=== PATIENT | male | born 1965 | race Caucasian/White ===

== ENCOUNTER 2018-02-25 19:15 | Emergency (ER) | payer SELFPAY ==
[~2018-02-25] VITALS: Ht 167.6 cm; Wt 96.2 kg
[2018-02-25 19:27] VITALS: BP 123/58; PULSE 84; RESP 18; TEMP 98; O2SAT 98
[2018-02-25] MEDS ORDERED: PRAV10TA PO (19:34)
[2018-02-25] MEDS ORDERED: LISI10TA3 PO (19:34)
[2018-02-25] MEDS ORDERED: ARTHTAB5 PO (20:37)
--- NOTE | 2018-02-25 20:42 | PD ---
HPI Chief Complaint: Pain: Acute or Chronic Time Seen by Provider: 19:33 Travel History International Travel<30 days: No Contact w/Intl Traveler<30days: No Traveled to known affect area: No History of Present Illness HPI 52-year-old male presents today with coming to left knee pain. Patient states he injured it about 6 months ago. Patient states he got better. States that yesterday he was lifting a heavy motor block and he heard a pop in his knee. He states it hurts when he bends and extends his knee. He denies any numbness or tingling to his leg. He denies any traumatic injury that he is aware of. Patient is able to stand however when he walks and bends his knee it hurts. PFSH Past Medical History Cardiovascular Problems: Yes (HTN) High Cholesterol: Yes Hypertension: Yes Past Surgical History Abdominal Surgery: Yes (HERNIA) Other Surgery: Yes (SKIN CANCER REMOVED) Social History Alcohol Use: No Tobacco Use: Yes Substance Use: No Allergies-Medications (Allergen,Severity, Reaction): Coded Allergies: No Known Allergies (Verified Allergy, Unknown, 02/25/18) Reported Meds & Prescriptions Reported Meds & Active Scripts Active Arthrotec 75 (Diclofenac-Misoprostol) 75-0.2 Mg Tab 1 Tab PO BID Reported Pravastatin 10 Mg Tab Unknown Dose PO DAILY Lisinopril 10 Mg Tab 10 Mg PO DAILY Review of Systems Except as stated in HPI: all other systems reviewed are Neg Musculoskeletal: Positive: Limited ROM (Secondary to pain), Pain, No: Weakness , Edema Neurologic: No: Weakness, Paresthesia, Sensory Disturbance Physical Exam Narrative GENERAL: Well-nourished, well-developed patient, in no acute distress. SKIN: Focused skin assessment warm/dry. HEAD: Normocephalic/atraumatic. EYES: No scleral icterus. No injection or drainage. NECK: Supple, trachea midline. MUSCULOSKELETAL: No cyanosis, or edema. Patient has tenderness over his medial collateral ligament. There is no bony instability there is no laxity on anterior posterior draw test. There is no laxity on lateral or medial movement. There is no palpable cords noted in the posterior popliteal fossa. Pulses and sensation distal are within normal limits. NEUROLOGICAL: Awake and alert. Cranial nerves II through XII intact. Motor and sensory grossly within normal limits. Five out of 5 muscle strength in all muscle groups. Normal speech. Data Data Last Documented VS Vital Signs Date Time Temp Pulse Resp B/P (MAP) Pulse Ox O2 Delivery O2 Flow Rate FiO2 02/25/18 19:27 98.0 84 18 123/58 (79) 98 Orders Orders Knee, Ltd (1 Or 2vws) (02/25/18 19:32) ^ Knee Immobilizer (02/25/18 20:36) MDM Medical Decision Making Medical Screen Exam Complete: Yes Emergency Medical Condition: Yes Differential Diagnosis Fracture versus sprain versus ligamentous injury versus effusion Narrative Course 52-year-old male presents with left knee pain. Patient states he heard a pop while lifting a heavy object at work. Patient has normal sensation and pulses in his distal lower extremity. He is tender over the medial collateral ligament. X-ray showed no evidence of acute bony injury. He has been placed in the left knee immobilizer. He will be told to wear it while ambulatory. He will be given a prescription for Arthrotec. He will need to see an orthopedic doctor. This will likely be done through his workman's comp. I will give him the name of the physician covering today. Diagnosis Primary Impression: Left knee pain Referrals: Deb Brito MD Additional Instructions: Wear knee immobilizer when ambulatory. Follow-up with orthopedic physician. Ice 24 hours, then moist heat. Med/Other Pt SpecificInfo: Prescription(s) given Scripts Diclofenac-Misoprostol (Arthrotec 75) 75-0.2 Mg Tab 1 TAB PO BID for Pain Management, #60 TAB 0 Refills Prov: Mark Machado MD 02/25/18 Disposition: 01 DISCHARGE HOME Condition: Stable Mark Machado MD February 25, 2018 20:42
--- NOTE | 2018-02-25 20:56 | RADRPT ---
EXAM DATE/TIME: 02/25/2018 20:08 [facility] COMPARISON: No previous studies available for comparison. INDICATIONS : Left medial knee pain after feeling a pop in his knee while at work today. MEDICAL HISTORY : None. SURGICAL HISTORY : None. ENCOUNTER: Initial ACUITY: 1 day PAIN SCORE: 6/10 LOCATION: Left knee FINDINGS: Two view examination of the left knee demonstrates no evidence of fracture or dislocation. Bony mine ralization is normal. The suprapatellar soft tissues have a normal configuration. CONCLUSION: Unremarkable limited examination of the left knee. Gary Victor MD on February 25, 2018 at 20:53 Board Certified Radiologist. This report was verified electronically.
[2018-02-25] MEDS ORDERED: DICLOFENAC SODIUM 75 MG DELAYED RELEASE TAB PO ONE (21:00)
== END 2018-02-25 21:08 | disposition home or self-care (01) ==
LOC: PHEFT 19:15
DX: M25.562 Pain in left knee (principal); I10 Essential (primary) hypertension; E78.00 Pure hypercholesterolemia, unspecified; Z72.0 Tobacco use; Z79.899 Other long term (current) drug therapy
CPT/HCPCS: 73560; 99283